=== PATIENT | female | born 1980 | race Two or more races ===

== ENCOUNTER 2022-09-05 18:49 | Inpatient (IN) | payer MEDICARE, OTHER ==
[~2022-09-05] VITALS: Ht 170.2 cm; Wt 130.6 kg
--- NOTE | 2022-09-05 19:23 | NUR ---
iv inserted, bld drawn and ssent to lab
[2022-09-05] MEDS ORDERED: IV NS 0.9% 1,000 ML BAG IV ONE (19:30)
[2022-09-05 19:51] LABS: EOSINOPHILS % (AUTO) 0.2 % (0.0-6.0); HEMATOCRIT 38 % (33-45); HEMOGLOBIN 11.9 g/dL (11.5-14.8); LYMPHOCYTES # (AUTO) 0.3 K/uL (0.8-4.8); LYMPHOCYTES % (AUTO) 1.9 % (20.0-44.0); MEAN CORPUSCULAR HGB CONC 32 g/dl (31.0-36.0); MEAN CORPUSCULAR VOLUME 95 fL (82-100); MONOCYTES # (AUTO) 0.6 K/uL (0.1-1.30); MONOCYTES % (AUTO) 3.6 % (2.0-12.0); NEUTROPHILS # (AUTO) 14.4 K/uL (1.8-8.9); NEUTROPHILS % (AUTO) 94.3 % (43.0-81.0); PLATELET COUNT (AUTO) 136 K/uL (150-450); RED BLOOD CELL COUNT(AUTO) 3.96 MIL/uL (4.0-5.2); WHITE BLOOD COUNT (AUTO) 15.3 K/uL (4.3-11.0)
[2022-09-05 20:20] LABS: CALCIUM, SERUM 8.1 mg/dL (8.5-10.1); CARBON DIOXIDE 22 mmol/L (21-32); CHLORIDE 101 mmol/L (98-107); CREATININE 3.3 mg/dL (0.6-1.3); GLUCOSE 121 mg/dL (74-106); POTASSIUM 3.6 mmol/L (3.5-5.1); SODIUM SERUM 137 mmol/L (136-145); UREA NITROGEN, BLOOD 52 mg/dL (7-18)
[2022-09-05 20:35] LABS: ALANINE AMINOTRANSFERASE 16 U/L (12-78); ALBUMIN 3.4 g/dL (3.4-5.0); ALKALINE PHOSPHATASE 164 U/L (46-116); ASPARTATE AMINOTRANSFERASE 14 U/L (15-37); BILIRUBIN,DIRECT 0.2 mg/dL (0.0-0.2); BILIRUBIN,TOTAL 0.5 mg/dL (0.2-1.0); TOTAL PROTEIN, SERUM 6.6 g/dL (6.4-8.2)
[2022-09-05] MEDS ORDERED: CLINDAMYCIN 600 MG in IV D5W 100 ML IV ONE ×4 (21:00)
[2022-09-05] MEDS ORDERED: PIPERACILLIN /TAZOBACTAM 3.375 G in IV D5W 50 ML IV ONE (21:00)
--- NOTE | 2022-09-05 21:00 | NUR ---
MOVE SHEET SUBMITTED.
[2022-09-05] MEDS ORDERED: PIPERACI/TAZO 3.375GM/D5W 50ML PB IV ONE (21:01)
--- NOTE | 2022-09-05 21:08 | NUR ---
CRITICAL LAB PROCALCITONIN 41.9 DR YOVANA DANIELLE AWARE
[2022-09-05] MEDS ORDERED: ALBUTEROL FS 2.5 MG/0.5 ML VIAL.NEB NEB PRN (21:30)
[2022-09-05] MEDS ORDERED: Z GUARD REMEDY 4 OZ OINT TP PRN (21:30)
[2022-09-05] MEDS ORDERED: ONDANSETRON HCL/PF 4 MG/2 ML VIAL IVP PRN (21:30)
[2022-09-05] MEDS ORDERED: AZITHROMYCIN 500 MG in IV D5W 250 ML IV ONE (21:30)
[2022-09-05 21:57] LABS: BILIRUBIN,URINE NEGATIVE (NEGATIVE); COLOR,URINE YELLOW (YELLOW); LEUKOCYTE ESTERASE ,URINE 1+ (NEGATIVE); NITRITE, URINE POSITIVE (NEGATIVE); PH,URINE 5.5 (5.0-8.0); PROTEIN,URINE 2+ mg/dl (NEGATIVE); UGLUCOSE NEGATIVE (NEGATIVE); UROBILINOGEN,URINE 0.2 EU/dL (0.2)
--- NOTE | 2022-09-05 22:03 | NUR ---
PT CAME IN C/O FEVER OF 103 ON ARRIVAL POSSIBLE SEPSIS AND Hx OF UTI COMING FROM SNF. PT A/O X4 WITH TREACH CONNECTED TO COOL AEROSOL/ G TUBE HAS BEEN REMOVED. PT CONNECTED TO BEDSIDE MONITOR VITALS WNL PLACED IN BED LOCKED IN LOW FOWLERS.
--- NOTE | 2022-09-05 22:10 | NUR ---
DR VERONIKA DANIELLE HOSPITALIST AT PT'S BEDSIDE FOR EVAL
[2022-09-05 22:24] LABS: BACTERIA,URINE 3+ /HPF (None Seen); MUCUS,URINE Few /LPF (None Seen); RBC,URINE 51-80 /HPF (0-2); SQUAMOUS EPITHELIAL CELL,UR 0-2 /HPF (None Seen)
[2022-09-06] VITALS (8 sets, daily range): BP systolic 103–138; BP diastolic 53–94
--- NOTE | 2022-09-06 00:12 | NUR ---
REPORT GIVEN TO MELISSA URENA FOR INPATIENT SERVICES.
[2022-09-06] MEDS ORDERED: CEFEPIME 2 GM in IV D5W 100 ML IV ONE (00:30)
--- NOTE | 2022-09-06 00:59 | NUR ---
PT TRANSFERRING TO 314-1 VIA ACLS PROTOCOL. VSS.
--- NOTE | 2022-09-06 02:00 | NUR ---
ASSISTANT PURCHASING MANAGERQUARRY BOSS NOTE ADMITTED THIS PATIENT FROM ER WITH ER STAFF VIA GURNEY IN DUE TO PNEUMONIA @ 0107. PATIENT IS AWAKE, ALERT AND ORIENTED X 4. WITH TRACH (SPEAKING VALVE) NOT ON VENTILATOR WITH O2 INHALATION @ 5LPM; TOLERATING WELL. ABLE TO MAKE NEEDS KNOWN. HOOKED TO TELE BOX WHICH READS SR-68 BPM. WITH IV ACCESS ON RIGHT FA 22G AND RIGHT FOOT 22G; BOTH ARE PATENT, INTACT AND SALINE LOCKED. DENIES ANY PAIN OR DISCOMFORT. SKIN AND BODY ASSESSMENT DONE: NOTED WITH GT SITE REDNESS, RIGHT BREAST UNDERFOLD REDNESS AND RIGHT INGUINAL REDNESS. PICTURES TAKEN AND PLACED TO CHART. INVENTORY OF PERSONAL BELONGINGS DONE. ORIENTED TO STAFF, ROOM AND UNIT. SAFETY AND ASPIRATION PRECAUTIONS IMPLEMENTED: CALL LIGHT AND TABLE WITHIN REACH, HOB ELEVATED, SIDE RAILS UP X 3, BED IN LOWEST LOCKED POSITION. WILL CONTINUE TO MONITOR THROUGHOUT SHIFT.
[2022-09-06] MEDS ORDERED: CEFEPIME 1 GM VIAL ONE (02:30)
[2022-09-06] MEDS ORDERED: IPRATROPIUM/ALBUTEROL INHALER ONE (02:30)
[2022-09-06] MEDS: IPRATROPIUM/ALBUTEROL INHALER IH SCH ×2 (05:52→06:00)
[2022-09-06 06:16] LABS: BASOPHILS % (AUTO) 0.1 % (0.0-2.0); HEMATOCRIT 36 % (33-45); HEMOGLOBIN 11.7 g/dL (11.5-14.8); LYMPHOCYTES # (AUTO) 0.4 K/uL (0.8-4.8); LYMPHOCYTES % (AUTO) 2.3 % (20.0-44.0); MEAN CORPUSCULAR HGB CONC 32 g/dl (31.0-36.0); MEAN CORPUSCULAR VOLUME 94 fL (82-100); NEUTROPHILS # (AUTO) 14.6 K/uL (1.8-8.9); NEUTROPHILS % (AUTO) 91.6 % (43.0-81.0); PLATELET COUNT (AUTO) 128 K/uL (150-450)
[2022-09-06 06:41] LABS: ALBUMIN 3.1 g/dL (3.4-5.0); BILIRUBIN,TOTAL 0.8 mg/dL (0.2-1.0); CALCIUM, SERUM 8.2 mg/dL (8.5-10.1); CREATININE 3.3 mg/dL (0.6-1.3); MAGNESIUM 1.7 mg/dL (1.8-2.4); PHOSPHORUS 3.9 mg/dL (2.5-4.9); POTASSIUM 3.7 mmol/L (3.5-5.1); TOTAL PROTEIN, SERUM 6.4 g/dL (6.4-8.2)
--- NOTE | 2022-09-06 07:20 | NUR ---
SUBMARINE OPERATOR CLOSING NOTE PATIENT IN BED; AWAKE, A/O X 4. WITH TRACH (SPEAKING VALVE) NOT ON VENTILATOR; ON COOL AIR SOFT 10 LPM @ 50%. IN NO ACUTE DISTRESS. ON TELEMONITORING WHICH READS SR-95 BPM. NO C/O ANY PAIN OR DISCOMFORT. KEPT COMFORTABLE IN BED. SAFETY AND ASPIRATION PRECAUTIONS MAINTAINED: CALL LIGHT AND TABLE WITHIN REACH, HOB ELEVATED, SIDE RAILS UP X 3, BED IN LOWEST LOCKED POSITION. ENDORSED TO MORNING SHIFT FOR CONTINUITY OF CARE.
--- NOTE | 2022-09-06 07:25 | NUR ---
GYRO MECHANIC OPENING NOTE RECEIVED PATIENT AWAKE IN BED, A/O X 4. WITH TRACHEOSTOMY (SPEAKING VALVE), ON COOL AIR SOFT 10 LPM 50%, BREATHING EVEN AND UNLABORED. NO SIGNS OF DISTRESS NOTED; NO PAIN NOTED AT THIS TIME. WITH IV ACCESS AT RFA G#22 SL AND RIGHT FOOT #22G SL. WITH EXTERNAL CARBURETOR MECHANIC WITH READING OF SINUS RHYTHM HR OF 95 BPM. WITH GT SITE, WITH DRESSING, DRY AND INTACT. SAFETY MEASURES IMPLEMENTED, BED LOCKED IN LOWEST POSITION, SIDE RAILS UP X 2, CALL LIGHT AND TABLE WITHIN REACH; WILL CONTINUE TO MONITOR PATIENT THROUGHOUT SHIFT.
[2022-09-06] MEDS: IPRATROPIUM NEB FS 0.5 MG/2.5 ML AMPUL.NEB NEB SCH ×4 (07:35→19:38)
[2022-09-06] MEDS: ALBUTEROL FS 2.5 MG/0.5 ML VIAL.NEB NEB SCH ×4 (07:35→19:38)
[2022-09-06] MEDS: HEPARIN SODIUM, PORCINE 5000 UNITS/1 ML VIAL SQ SCH ×2 (09:30→22:08)
[2022-09-06] MEDS: LINEZOLID RTU BAG 600 MG in PREMIX 1 EA IV SCH ×2 (10:56→20:15)
[2022-09-06] MEDS: ACETAMINOPHEN 325 MG TABLET PO PRN (15:46)
--- NOTE | 2022-09-06 18:57 | NUR ---
TEAROOM HOST CLOSING NOTE PATIENT AWAKE IN BED, A/O X 4. WITH T- PIECE PORTEX, ON ROOM AIR AT THE MOMENT PREVIOUSLY ON COOL AIR SOFT 10 LPM 50%, BREATHING EVEN AND UNLABORED. NO SIGNS OF DISTRESS NOTED; NO PAIN NOTED AT THIS TIME. WITH IV ACCESS AT RIGHT FOOT G#22 SL, INTACT, PATENT AND FLUSHING WELL. SKIN CARE IMPLEMENTED. REDNESS AROUND G-TUBE SITE, DRESSING CHANGED, DRY AND INTACT. WITH EXTERNAL NANNY/HOUSEHOLD MANAGER WITH READING OF SINUS RHYTHM WITH HR OF 107 BPM. NO CARDIAC DISTRESS NOTED. SAFETY MEASURES IMPLEMENTED, BED LOCKED IN LOWEST POSITION, SIDE RAILS UP X 2, CALL LIGHT AND TABLE WITHIN REACH; WILL ENDORSE TO PROJECT DEVELOPER NURSE.
--- NOTE | 2022-09-06 20:00 | NUR ---
RECEIVED PATIENT IN BED, ALERT/ORIENTED X3, ROOM AIR, ABDOMINAL DISCOMFORT, ASSISTED TO TOILET, PREVIOUS PEG SITE DRAINING BROWNISH DISCHARGE, DRESSING CHANGED. NOTED DESHAWN AV FISTULA, PATIENT ON DIALYSIS. PATIENT HAS CHILD LIKE DEMEANOR, KEPT SAFE, EDUCATED PATIENT TO USE CALL LIGHT WHEN GETTING OUT OF BED. WILL CONTINUE TO MONITOR.
[2022-09-06] MEDS: MORPHINE SULFATE INJ 2 MG/ML DISP.SYRIN IV PRN (20:15)
--- NOTE | 2022-09-06 21:50 | NUR ---
NOTIFIED DR. BANDA REGARDING PEG TUBE SITE REDNESS AND DRAINAGE. NO GI CONSULT AT NIGHT, WILL REPORT DURING THE DAY.
--- NOTE | 2022-09-06 23:06 | NUR ---
PERIPHERAL IV LINE ON RIGHT FOOT INFILTRATED, ATTEMPTED INSERTION BY TWO NURSES HAS FAILED. ZYVOX IS [facility] INFUSING WHEN THE IV LINE IS DISLODGED AND INFILTRATED. NOTIFIED RN CARBURETOR EXPERT FOR MIDLINE.
[2022-09-07] VITALS: BP 129/61
[2022-09-07] MEDS: ALBUTEROL FS 2.5 MG/0.5 ML VIAL.NEB NEB SCH ×4 (01:52→20:41)
[2022-09-07] MEDS: IPRATROPIUM NEB FS 0.5 MG/2.5 ML AMPUL.NEB NEB SCH ×4 (01:52→20:42)
[2022-09-07 04:00] VITALS: BP 120/69
--- NOTE | 2022-09-07 05:19 | NUR ---
NO IV LINE, MAXIPIME NOT GIVEN AT THIS TIME
[2022-09-07 06:45] LABS: BASOPHILS % (AUTO) 0.1 % (0.0-2.0); EOSINOPHILS % (AUTO) 0.6 % (0.0-6.0); HEMATOCRIT 35 % (33-45); HEMOGLOBIN 11.3 g/dL (11.5-14.8); LYMPHOCYTES # (AUTO) 0.6 K/uL (0.8-4.8); LYMPHOCYTES % (AUTO) 5.6 % (20.0-44.0); MEAN CORPUSCULAR HGB CONC 33 g/dl (31.0-36.0); MEAN CORPUSCULAR VOLUME 94 fL (82-100); MONOCYTES # (AUTO) 0.7 K/uL (0.1-1.30); MONOCYTES % (AUTO) 7.5 % (2.0-12.0); NEUTROPHILS # (AUTO) 8.6 K/uL (1.8-8.9); NEUTROPHILS % (AUTO) 86.2 % (43.0-81.0); PLATELET COUNT (AUTO) 106 K/uL (150-450); RED BLOOD CELL COUNT(AUTO) 3.68 MIL/uL (4.0-5.2)
--- NOTE | 2022-09-07 06:55 | NUR ---
ALERT/ORIENTED X3, TRACH WITH SPEAKING VALVE, ON COOL AIR SOFT, 5LPM, TOLERATING ROOM AIR, SPO2 95-98%. PREVIOUS PEG TUBE SITE DRAINING BROWNISH OUTPUT, PERIWOUND SITE IS RED WITH SKIN IRRITATION, DRESSING CHANGED, COMPLAINING OF PAIN, GIVEN MORPHINE, NOTIFIED HOSPITALIST, DR. BANDA FOR GI CONSULT. RIGHT FOOT IV LINE INFILTRATED, NO IV LINE FOR NOW, ZYVOX AND MAXIPIME, MIDLINE PLACEMENT NEEDED. PATIENT ON HD 3X PER WEEK, NO HD SINCE ADMISSION. BLOOD CULTURE PENDING, VS STABLE, AFEBRILE, SR 76 ON THE TELE.
[2022-09-07 07:08] LABS: ALBUMIN 2.8 g/dL (3.4-5.0); BILIRUBIN,TOTAL 0.8 mg/dL (0.2-1.0); CALCIUM, SERUM 8.7 mg/dL (8.5-10.1); CREATININE 2.8 mg/dL (0.6-1.3); MAGNESIUM 1.9 mg/dL (1.8-2.4); PHOSPHORUS 3.3 mg/dL (2.5-4.9); POTASSIUM 3.5 mmol/L (3.5-5.1); TOTAL PROTEIN, SERUM 6.2 g/dL (6.4-8.2)
--- NOTE | 2022-09-07 07:53 | NUR ---
RN OPENING NOTE RECEIVED PATIENT IN BED, AO X 3, ABLE TO RESPONDS ALL PHYSICAL STIMULI. PATIENT HAS TRACHEOSTOMY WITH SPEAKING VALVE, RESPIRATORY EVEN AND UNLABORED IN ROOM AIR, IN NO ACUTE RESPIRATORY DISTRESS OBSERVED. SKIN IS WARM TO TOUCH, KEEP CLEAN/DRY. KEPT ELEVATED HOB FOR ASPIRATION PRECAUTION AND ENSURE AIRWAY, ALSO LOWEST BED POSITIONED. BED ALARM IS ON AT ALL TIMES FOR SAFETY. CALL LIGHT WITHIN REACH, WILL CONTINUE TO MONITOR.
[2022-09-07] MEDS: HEPARIN SODIUM, PORCINE 5000 UNITS/1 ML VIAL SQ SCH ×2 (08:18→20:18)
[2022-09-07 08:47] VITALS: BP 117/83
[2022-09-07] MEDS ORDERED: KETO15CR2 TP (10:39)
[2022-09-07] MEDS ORDERED: BENZ0.5T43 PO (10:39)
[2022-09-07] MEDS ORDERED: TRAZ-182 PO (10:39)
[2022-09-07] MEDS ORDERED: LORA10TA68 PO (10:39)
[2022-09-07] MEDS ORDERED: LORA-259 PO (10:39)
[2022-09-07] MEDS ORDERED: FOLI0.8T2 PO (10:39)
[2022-09-07] MEDS ORDERED: POLY17PO4 PO (10:39)
[2022-09-07] MEDS ORDERED: CALC500T13 PO (10:39)
[2022-09-07] MEDS ORDERED: OXYC5TAB3 PO (10:39)
[2022-09-07] MEDS ORDERED: GABA-532 PO (10:39)
[2022-09-07] MEDS ORDERED: BUPR-96 PO (10:39)
[2022-09-07] MEDS ORDERED: IPRA3AMP23 IH (10:39)
[2022-09-07] MEDS ORDERED: HEXY1LOZ4 MM (10:39)
[2022-09-07] MEDS ORDERED: LANS15CA13 PO (10:39)
[2022-09-07] MEDS ORDERED: ARIP10TA9 PO (10:39)
[2022-09-07] MEDS ORDERED: TOPI50TA PO (10:39)
[2022-09-07] MEDS ORDERED: SENN1TAB77 PO (10:39)
[2022-09-07] MEDS ORDERED: FLUT16SP16 (10:39)
[2022-09-07] MEDS ORDERED: KETO120S5 TP (10:39)
[2022-09-07] MEDS ORDERED: POLY15DR40 EACHEYE (10:39)
[2022-09-07] MEDS ORDERED: ACET-868 PO (10:39)
[2022-09-07] MEDS ORDERED: ATOR10TA PO (10:39)
[2022-09-07] MEDS ORDERED: SERT50TA PO (10:39)
[2022-09-07] MEDS ORDERED: APIX2.5T PO (10:39)
[2022-09-07] MEDS ORDERED: PROP10TA10 PO (10:39)
[2022-09-07] MEDS ORDERED: FERR325T24 PO (10:39)
[2022-09-07] MEDS ORDERED: HYDR-500 PO (10:39)
[2022-09-07] MEDS ORDERED: GUAI100S11 PO (10:39)
[2022-09-07] MEDS ORDERED: SUCR1ORA15 PO (10:39)
[2022-09-07] MEDS ORDERED: AMIN30LI2 PO (10:39)
[2022-09-07] MEDS ORDERED: HALO5TAB8 PO ×2 (10:39)
[2022-09-07] MEDS ORDERED: MIDO5TAB4 PO (10:39)
[2022-09-07] MEDS ORDERED: METO-295 PO (10:39)
[2022-09-07] MEDS ORDERED: MINO2.5T PO (10:39)
[2022-09-07] MEDS ORDERED: BENZ1TAB7 PO (10:39)
[2022-09-07] MEDS ORDERED: HYDR200T81 PO (10:39)
[2022-09-07] MEDS ORDERED: MINO60SO TP (10:39)
[2022-09-07] MEDS ORDERED: CHLO473M5 MM (10:39)
[2022-09-07] MEDS ORDERED: LACT1CAP71 PO (10:39)
[2022-09-07] MEDS ORDERED: LEVO100T9 PO (10:39)
[2022-09-07] MEDS ORDERED: MAGN400O6 PO (10:39)
[2022-09-07] MEDS ORDERED: IPRA0.2S9 IH (10:39)
[2022-09-07] MEDS ORDERED: LIDO30AD10 TP (10:39)
--- NOTE | 2022-09-07 11:16 | NUR ---
PATIENT JUST OBTAINED MIDLINE ON RIGHT UPPER ARM AND STARTING ZYVOX 600MG IV FROM 2100 09/06. MISSED COUPLE OF ABX IV; MAXIPIME 2GM AT 0600 AND ZYVOX 600MG IV AT 0900 AM. INFORMED PHARMACY REGARDING ABOVE.
[2022-09-07] MEDS: CEFEPIME 2 GM in IV D5W 100 ML IV SCH (12:11)
[2022-09-07] MEDS: MORPHINE SULFATE INJ 2 MG/ML DISP.SYRIN IV PRN ×2 (13:11→17:26)
[2022-09-07] MEDS: LINEZOLID RTU BAG 600 MG in PREMIX 1 EA IV SCH ×2 (14:37→20:17)
[2022-09-07 16:10] VITALS: BP 147/85
--- NOTE | 2022-09-07 18:19 | NUR ---
RN CLOSING NOTE PATIENT RESTING IN BED. IN NO ACUTE DISTRESS OBSERVED. RESPIRATORY EVEN AND UNLABORED IN ROM AIR. SKIN IS WARM TO TOUCH KEEP CLEAN/DRY. CHANGED GI DRESSING X 5. KEPT ELEVATED HOB FOR ENSURE AIRWAY/ASPIRATION PRECAUTION, AND LOWEST BED POSITION. BED ALARM IS ON ALL TIMES FOR SAFETY. PATIENT NOTED POSITIVE MRSA, PLACED NEW ORDER BACTROBAN APPLY BILATERAL NARES BID X 7DAYS. CALL LIGHT WITHIN REACH, WILL ENDORSE BUSINESS SUPPORT PROFESSIONAL.
--- NOTE | 2022-09-07 19:24 | NUR ---
RN OPENING NOTE RECEIVED PATIENT IN BED AWAKED,AO X 3, ABLE TO MAKE NEEDS KNOWN,TRACHEOSTOMY PT WITH SPEAKING VALVE KAROLINA WELL SAT 98%,NO SOB/DISTRESS NOTED,NO COMPLAIN OF PAIN/DISCOMFORT AT THIS TIME,SAFETY MEASURE IN PLACE,CALL LIGHT WITHIN REACH, WILL CONTINUE TO MONITOR.
[2022-09-07 20:00] VITALS: BP 144/86
[2022-09-07] MEDS: MUPIROCIN OINT 2% 22 GM TUBE NS SCH (20:17)
--- NOTE | 2022-09-07 20:42 | NUR ---
RT NOTE PATIENT RECEIVED WITH TRACH AND WITH PMV ON ROOM AIR. PATIENT IS AWAKE AND RESPONSIVE. PATIENT IS CURRENTLY REFUSING TO USE COOL AEROROL. NO SIGNS OF RESPIRATORY DISTRESS AT THIS TIME. SPO2 CURRENTLY 95-97%. WILL CONTINUE TO MONITOR PATIENT.
[2022-09-08] VITALS: BP 121/74
[2022-09-08] MEDS: MORPHINE SULFATE INJ 2 MG/ML DISP.SYRIN IV PRN ×4 (00:46→19:43)
--- NOTE | 2022-09-08 00:52 | NUR ---
RN NOTE; PATIENT COMPLAINED OF ABDOMINAL PAIN 12/28.PRN MORPHINE 2MG IVP WAS GIVEN,NO A/R NOTED.
[2022-09-08] MEDS: IPRATROPIUM NEB FS 0.5 MG/2.5 ML AMPUL.NEB NEB SCH ×4 (02:32→20:34)
[2022-09-08] MEDS: ALBUTEROL FS 2.5 MG/0.5 ML VIAL.NEB NEB SCH ×4 (02:32→20:34)
[2022-09-08 04:00] VITALS: BP 124/84
[2022-09-08] MEDS: CEFEPIME 2 GM in IV D5W 100 ML IV SCH (05:10)
--- NOTE | 2022-09-08 06:15 | NUR ---
RN CLOSING NOTE; PATIENT IN BED AWAKED,AOX 3, ABLE TO MAKE NEEDS KNOWN,TRACH PT WITH SPEAKING VALVE ON KAROLINA WELL SAT 97%,NO SOB/DISTRESS NOTED,PT COMPLAINED OF ABD PAIN 9/10 PRN MORPHINE 2MG WAS GIVEN EFFECTIVE,DUE MEDS GIVEN ORDERED,ALL NEEDS ATTENDED,SAFETY MEASURE IN PLACE,CALL LIGHT WITHIN REACH, WILL ENDORSED TO NEXT SHIFT.
[2022-09-08] MEDS: ACETAMINOPHEN 325 MG TABLET PO PRN (06:30)
[2022-09-08 07:21] LABS: BASOPHILS % (AUTO) 0.6 % (0.0-2.0); HEMATOCRIT 34 % (33-45); HEMOGLOBIN 11.2 g/dL (11.5-14.8); LYMPHOCYTES # (AUTO) 0.8 K/uL (0.8-4.8); MEAN CORPUSCULAR HGB CONC 33 g/dl (31.0-36.0); MEAN CORPUSCULAR VOLUME 95 fL (82-100); MONOCYTES # (AUTO) 0.7 K/uL (0.1-1.30); MONOCYTES % (AUTO) 11.3 % (2.0-12.0); NEUTROPHILS # (AUTO) 4.9 K/uL (1.8-8.9); NEUTROPHILS % (AUTO) 74.1 % (43.0-81.0); PLATELET COUNT (AUTO) 114 K/uL (150-450); RED BLOOD CELL COUNT(AUTO) 3.62 MIL/uL (4.0-5.2); WHITE BLOOD COUNT (AUTO) 6.6 K/uL (4.3-11.0)
[2022-09-08 07:25] LABS: ALBUMIN 2.8 g/dL (3.4-5.0); BILIRUBIN,TOTAL 0.6 mg/dL (0.2-1.0); CALCIUM, SERUM 8.8 mg/dL (8.5-10.1); CREATININE 2.6 mg/dL (0.6-1.3); MAGNESIUM 2.1 mg/dL (1.8-2.4); PHOSPHORUS 3.5 mg/dL (2.5-4.9); POTASSIUM 3.4 mmol/L (3.5-5.1); TOTAL PROTEIN, SERUM 6.4 g/dL (6.4-8.2)
--- NOTE | 2022-09-08 07:55 | NUR ---
SECTION GANG WORKER OPENING NOTE Patient in bed, awake. A/O x 2-3, able to make needs known. On room air, trach with passy nicolette valve noted. No SOB or s/s of distress noted. IV access on EMMA midline SL, intact and patent. LFA AV fistula noted. On external asset protection representative showing SB , HR 55. Abdominal dressing c/d/i. Safety precautions in place: bed in low, locked position; siderails up x 2; call light within reach. Will continue to monitor.
[2022-09-08 08:59] VITALS: BP 123/79
[2022-09-08] MEDS: LINEZOLID RTU BAG 600 MG in PREMIX 1 EA IV SCH ×2 (09:05→20:39)
[2022-09-08] MEDS: HEPARIN SODIUM, PORCINE 5000 UNITS/1 ML VIAL SQ SCH ×2 (09:05→20:40)
[2022-09-08] MEDS: MUPIROCIN OINT 2% 22 GM TUBE NS SCH ×2 (09:06→20:41)
--- NOTE | 2022-09-08 10:09 | NUR ---
WOUND CARE CONSULT:PT PRESENTS WITH RASH TO SKIN FOLDS AND PREVIOUS G TUBE SITE WHICH HAS NOT HEALED WITH LARGE AMOUNT OF GREEN DRAINAGE, PRESENT ON ADMISSION. RECOMMENDATIONS MADE FOR SKIN PROTECTION. DISCUSSED WITH NURSING STAFF. DR FENTON CALLED FOR SURGICAL CONSULT. OSTOMY POUCH WAS PLACED ON ABDOMEN FOR SKIN PROTECTION. DEFER TO PMD FOR POSSIBLE GI CONSULT. PT IS AMBULATORY AND CONTINENT. CAPPED TRACH NOTED. MD IN AGREEMENT WITH PLAN OF CARE. Addendum: 09/08/22 at 1012 by SUJEY BRYAN WNDNU Amended: Links added.
[2022-09-08 11:07] VITALS: BP 124/80
--- NOTE | 2022-09-08 13:20 | NUR ---
RN NOTE Patient's potassium is 3.4, Dr. Sage Locke notified but did not want to replace because of BUN is 37, creatinine is 2.6.
[2022-09-08 16:24] VITALS: BP 131/84
[2022-09-08] MEDS ORDERED: CLOTRIMAZOLE 1% 15 GM TUBE TP SCH (17:00)
--- NOTE | 2022-09-08 17:00 | NUR ---
RN NOTE Bladder scan done with 300 ml residual, Dr. Mosher notified and ordered to do bladder scan again at 1999. Will endorse to professor of literacy nurse.
--- NOTE | 2022-09-08 19:23 | NUR ---
SUPERVISOR CORE SHOP CLOSING NOTE Patient in bed, resting. A/O x 3, able to make needs known. Stable on room air, trach with passy nicolette valve noted. No SOB or s/s of distress noted. IV access on EMMA midline SL, intact and patent. LFA AV fistula noted. On external solar fabrication technician showing SR , HR 63. GT site left open, per Dr. Aguayo, with redness around, Lotrimin cream applied. Procedure consent obtained for surgery on GT site. Safety precautions in place: bed in low, locked position; siderails up x 2; call light within reach. Will endorse to car shifter nurse for VINAYAK.
[2022-09-08 20:00] VITALS: BP 126/86
--- NOTE | 2022-09-08 21:51 | NUR ---
BLADDER SCANNED AT 2130 SHOWING 354 ML DONE SHE AFTER SHE VOIDED TEXTED MD CHOU WHO PLACED THE ORDER WAITING FOR RETURN ORDERS PATIENT NOT COMPLAINING OF DISCOMFORT
--- NOTE | 2022-09-08 22:51 | NUR ---
called MD CHOU made aware bladder scan the patient showing 354 ml orders received to straight cath now x1 and do bladder scan q day @ 10AM
[2022-09-09] MEDS: ALBUTEROL FS 2.5 MG/0.5 ML VIAL.NEB NEB SCH ×5 (02:20→20:50)
[2022-09-09] MEDS: IPRATROPIUM NEB FS 0.5 MG/2.5 ML AMPUL.NEB NEB SCH ×5 (02:20→20:50)
--- NOTE | 2022-09-09 04:25 | NUR ---
CLOSING NOTES: ALERT AND ORIENTATED X3 CAPPED TRACH SATS 93 -5% AMBULATES TO THE BATHROOM STEADY GAIT 21:30 BLADDER SCANNED 354 ML SEEN...CALL PLACED TO MD CHOU ORDERS GIVEN PLACED PT ON I/O AND EXPLAINED THIS TO HER I STRAIT CATHED HER 1X ORDERED BY THE MD 300ML OBTAINED LAST VOIDING 04:30 250 [address]ARK [employer] PT IS ON ZYVOX AND MAXIPIME ATBS NPO SINCE MIDNIGHT SCHEDULE FOR CLOSURE OF PEG TUBE SITE WITH DEBRIDMENT SHE IS AWARE AROUND PEG SITE RED AND SORE APPEARING CONT. OOZING KEPT THE AREA CLEAN AND DRY
[2022-09-09] MEDS: CEFEPIME 2 GM in IV D5W 100 ML IV SCH (05:41)
[2022-09-09] MEDS: MORPHINE SULFATE INJ 2 MG/ML DISP.SYRIN IV PRN ×2 (05:50→13:44)
--- NOTE | 2022-09-09 07:00 | NUR ---
COTTRELL BLOWER OPENING NOTE PATIENT IN BED AWAKE, ALERT AND ORIENTED X 2-3 AND ABLE TO MAKE NEEDS KNOWWN, NO SOB OR CARDIAC DISTRESS NOTED. IV ACCESS ON EMMA ML PATENT,INTACT AND SALINE LOCKED. NOTED WITH LFA AV FISTULA. ON JUDICIAL ASSISTANT WITH CURRENT READING OF SINUS @60BPM.NOTED WITH REDDENED ABDOMEN WITH DISCHARGE. SAFETY MEASURES MAINTAINED: BED LOCKED AND IN LOWEST POSITION, SIDERAILS UP X 2. CALL LIGHT IN EASY REACH AND WILL MONITOR PT ACCORDINGLY.
[2022-09-09 07:30] VITALS: BP 147/88
[2022-09-09 08:03] LABS: CALCIUM, SERUM 9.3 mg/dL (8.5-10.1); CREATININE 2.2 mg/dL (0.6-1.3); POTASSIUM 3.9 mmol/L (3.5-5.1)
[2022-09-09] MEDS: HEPARIN SODIUM, PORCINE 5000 UNITS/1 ML VIAL SQ SCH ×2 (09:00→21:31)
[2022-09-09] MEDS: LINEZOLID RTU BAG 600 MG in PREMIX 1 EA IV SCH ×2 (09:41→21:15)
[2022-09-09] MEDS: MUPIROCIN OINT 2% 22 GM TUBE NS SCH ×2 (09:42→21:33)
[2022-09-09] MEDS: CLOTRIMAZOLE/BETAMETASONE DIPROPIONATE 15 GM TUBE TP SCH ×2 (09:43→17:00)
[2022-09-09 11:30] VITALS: BP 151/90
--- NOTE | 2022-09-09 12:30 | NUR ---
RN NOTES: PVR DONE 650ML URINE RETENTION NOTED AND INFORMED DR JIANG, ORDERED TO INSERT GEORGE CATHETER. ORDERS NOTED AND CARRIED OUT.
--- NOTE | 2022-09-09 13:44 | NUR ---
PAIN MANAGMENT MORPHINE 2MG IVP GIVEN,PAIN SCALE OF 8/10 ON HER ABDOMEN/STOMACH. NOTED WITH EPISODES OF CRYING.
--- NOTE | 2022-09-09 13:44 | NUR ---
PAIN MANAGEMENT: MORPHINE 2MG/ML PAIN SCALE 8/10 ON HER ABDOMEN/STOMACH. NOTED WITH EPISODES OF CRYING. Addendum: 09/09/22 at 1351 by MATILDE VAUGHN RN ERROR INCOMPLETE NOTES.
[2022-09-09 16:00] VITALS: BP 157/95
[2022-09-09] MEDS ORDERED: VANCOMYCIN 1 GM VIAL ONE (16:24)
[2022-09-09] MEDS ORDERED: BUPIVACAINE MPF 0.5% W/EPI INJ 30 ML VIAL ONE (16:24)
[2022-09-09] MEDS ORDERED: LIDOCAINE 1% INJ 50 ML MDV IJ ONE (16:24)
[2022-09-09] MEDS ORDERED: BACITRACIN ZINC OINT PACKET 1 EA PACKET TP ONE (16:24)
--- NOTE | 2022-09-09 18:15 | NUR ---
RN NOTES: PATIENT P/U BY SURGERY TEAM VIA BED. PT ALERT AND ORIENTED X 3 AND ABLE TO MAKE NEEDS KNOWN, PARENTS AT BED SIDE. PT FOR SURGERY UNDER DR GARDNER. IV ACCESS ON EMMA ML PATENT INTACT AND SL. GEORGE CATHETER IN PLACE, DRAINING CLEAR YELLOW COLORED URINE BY GRAVITY. NPO SINCE MN. ENDORSED TO ROMEL CROOK FOR SURGERY. PT LEFT THE UNIT STABLE.
[2022-09-09] MEDS ORDERED: FENTANYL PF 250MCG/5ML AMPUL ONE (19:16)
[2022-09-09] MEDS ORDERED: HYDROMORPHONE INJ 2 MG/ML DISP.SYRIN ONE (19:16)
[2022-09-09] MEDS ORDERED: FAMOTIDINE/PF INJ 20 MG/2 ML VIAL IV ONE (19:16)
[2022-09-09] MEDS ORDERED: ROCURONIUM BROMIDE 50 MG/5 ML ONE (19:17)
--- NOTE | 2022-09-09 19:35 | NUR ---
GENERAL FARMWORKER CLOSING NOTES: PATIENT CURRENTLY ON SURGERY. ENDORSED TO CEO ZIFF DAVIS FOR VINAYAK.
--- NOTE | 2022-09-09 19:53 | NUR ---
patient not in room In surgery at this time
[2022-09-09] MEDS ORDERED: GLYCOPYRROLATE 0.2 MG/ML VIAL ONE (20:06)
--- NOTE | 2022-09-09 20:51 | NUR ---
RT NOTE PATIENT CURRENTLY NOT IN ROOM. HHN TX NOT GIVEN
[2022-09-09 21:00] VITALS: BP 148/93
[2022-09-09] MEDS ORDERED: IV LR 1000 ML 1,000 ML IV PRN (21:00)
--- NOTE | 2022-09-09 21:00 | NUR ---
in room from surgery via bed alert and orientated X3 father and mother in to see their dtr abd dressing CDI surronding the dressed area reddened area right arm midline IV started LR @ 100 ml hr mane to OSD bag clear yellow drank apple juice w/o nausea VS 148/93 58 19 95% sats mist cool air to trach by the resp therapist patient appears comfortable refusing the SCDs when placed on her legs she is on Heparing SQ call light within her reach her phone is near bed alarm is on
[2022-09-10] VITALS: BP 157/90
[2022-09-10] MEDS: MORPHINE SULFATE INJ 2 MG/ML DISP.SYRIN IV PRN ×2 (02:08→09:34)
[2022-09-10] MEDS: IPRATROPIUM NEB FS 0.5 MG/2.5 ML AMPUL.NEB NEB SCH ×4 (02:22→15:51)
[2022-09-10] MEDS: ALBUTEROL FS 2.5 MG/0.5 ML VIAL.NEB NEB SCH ×4 (02:22→15:51)
[2022-09-10 04:00] VITALS: BP 157/91
[2022-09-10] MEDS: CEFEPIME 2 GM in IV D5W 100 ML IV SCH (05:37)
[2022-09-10 05:42] LABS: BASOPHILS # (AUTO) 0.1 K/uL (0.0-0.2); BASOPHILS % (AUTO) 0.6 % (0.0-2.0); EOSINOPHILS % (AUTO) 0.7 % (0.0-6.0); HEMATOCRIT 36 % (33-45); HEMOGLOBIN 11.7 g/dL (11.5-14.8); LYMPHOCYTES # (AUTO) 1.1 K/uL (0.8-4.8); LYMPHOCYTES % (AUTO) 10.3 % (20.0-44.0); MEAN CORPUSCULAR HGB CONC 33 g/dl (31.0-36.0); MEAN CORPUSCULAR VOLUME 93 fL (82-100); MONOCYTES # (AUTO) 0.9 K/uL (0.1-1.30); MONOCYTES % (AUTO) 8.8 % (2.0-12.0); NEUTROPHILS # (AUTO) 8.2 K/uL (1.8-8.9); NEUTROPHILS % (AUTO) 79.6 % (43.0-81.0); PLATELET COUNT (AUTO) 160 K/uL (150-450); RED BLOOD CELL COUNT(AUTO) 3.86 MIL/uL (4.0-5.2); WHITE BLOOD COUNT (AUTO) 10.3 K/uL (4.3-11.0)
[2022-09-10 06:01] LABS: CALCIUM, SERUM 9.2 mg/dL (8.5-10.1); CREATININE 2.1 mg/dL (0.6-1.3); MAGNESIUM 2.3 mg/dL (1.8-2.4); PHOSPHORUS 4.8 mg/dL (2.5-4.9); POTASSIUM 4.1 mmol/L (3.5-5.1)
--- NOTE | 2022-09-10 06:24 | NUR ---
closing notes: alert and orientated X3 slept off and on thru the night mane drainage clear yellow ABD dressing CDI Room air Resp tx thru the night occ dry cough medicated 1 X with Morphine 2 mg and effective for ABD disomfort
--- NOTE | 2022-09-10 07:40 | NUR ---
RN OPENING NOTE RECEIVED PATIENT AWAKE IN BED, A/O X 3. PATIENT WITH TRACH, ON ROOM AIR, BREATHING EVEN AND UNLABORED. NO SIGNS OF DISTRESS NOTED. S/S NO PAIN NOTED AT THIS TIME. IV ACCESS AT EMMA MIDLINE, INTACT PATENT AND FLUSHING WELL. WITH EXTERNAL VEST BACKER WITH READING OF SB HR OF 58. FALL AND SAFETY MEASURES IN PLACED, BED LOCKED IN LOWEST POSITION, SIDE RAILS UP X 2, CALL LIGHT AND TABLE WITHIN REACH; WILL CONTINUE TO MONITOR PATIENT THROUGHOUT SHIFT. Addendum: 09/10/22 at 0819 by Devorah Friend RN PATIENT WITH GEORGE CATHETER, IN PLACE DRAINING WELL, YELLOW URINE.
[2022-09-10 08:00] VITALS: BP 155/97
[2022-09-10] MEDS: HEPARIN SODIUM, PORCINE 5000 UNITS/1 ML VIAL SQ SCH (09:31)
[2022-09-10] MEDS: MUPIROCIN OINT 2% 22 GM TUBE NS SCH (09:32)
[2022-09-10] MEDS: LINEZOLID RTU BAG 600 MG in PREMIX 1 EA IV SCH (09:32)
[2022-09-10] MEDS: CLOTRIMAZOLE/BETAMETASONE DIPROPIONATE 15 GM TUBE TP SCH ×2 (09:32→16:30)
[2022-09-10] MEDS ORDERED: NITROFURANTOIN/MONOHYDRATE MACROCRYSTALS 100 MG CAPSULE PO SCH (11:30)
[2022-09-10] MEDS ORDERED: LINE600T13 PO (14:30)
[2022-09-10] MEDS ORDERED: NITR100C15 PO (14:30)
[2022-09-10] MEDS ORDERED: CLOT15CR5 TP (14:38)
[2022-09-10 16:00] VITALS: BP 166/88
[2022-09-10] MEDS ORDERED: LORAZEPAM 1 MG TABLET PO ONE (17:25)
--- NOTE | 2022-09-10 18:52 | NUR ---
RN CLOSING NOTE PATIENT AWAKE IN BED, A/O X 3. PATIENT WITH TRACH, ON ROOM AIR, BREATHING EVEN AND UNLABORED. NO SIGNS OF DISTRESS NOTED. S/S NO PAIN NOTED AT THIS TIME. PATIENT WITH GEORGE CATHETER, IN PLACE DRAINING WELL, YELLOW URINE, OUTPUT 900ML .NO IV ACCESS. EXTERNAL BUSINESS INSTRUCTOR WAS REMOVED AND TURNED TO TELE DESK. PATIENT IS WAITING FOR TRANSPORTATION. ALL NEEDS ATTENDED AND ANTICIPATED. FALL AND SAFETY MEASURES IN PLACED, BED LOCKED IN LOWEST POSITION, SIDE RAILS UP X 2, CALL LIGHT AND TABLE WITHIN REACH. WILL ENDORSE TO VISUAL MERCHANDISING ASSOCIATE NURSE.
--- NOTE | 2022-09-10 19:40 | NUR ---
METAL PATTERNMAKER NOTE PATIENT DISCHARGE IN STABLE MEDICAL CONDITION, A/O X 3. V/S TAKEN STABLE. NO IV ACCESS, IV REMOVED. NAME ARM BAND REMOVED. EXTERNAL AVIATION ELECTRICIAN REMOVED AND RETURNED TO TELE DESK. PATIENT REFUSED SKIN ASSESSMENT AND PICTURES. ALL BELONGINGS CHECKED AND BELONGING LIST SIGNED. PATIENT LEFT WITH GEORGE CATHETER FACILITY AWARE. HEALTH TEACHING AND DISCHARGE INSTRUCTIONS GIVEN TO NURSE AT FACILITY, FAMILY AT BEDSIDE AND PATIENT, VERBALIZED UNDERSTANDING. REPORT GIVEN TO ARAM THOMAS AT [facility]. DISCUSSED PRESCRIPTION WITH PATIENT'S FAMILY, PATIENT AND NURSE AT FACILITY. INSTRUCTED PATIENT TO MAKE APPOINTMENT WITH DOCTORS. INSTRUCTED PATIENT IN CASE OF EMERGENCY TO CALL 911 OR GO TO NEAREST ER. PATIENT LEFT UNIT VIA GURNEY WITH NO SINGED OF DISTRESS NOTES. CHARGE NURSE AWARE OF DISCHARGED.
== END 2022-09-10 19:30 | DRG 853 ==
LOC: ER 18:57 → TELE 09-06 00:05
PROVIDERS: ADMIT Internal Medicine; ATTEND Nurse Practitioner Acute Care
PROC: 05HD33Z Insertion of Infusion Device into Right Cephalic Vein, Percutaneous Approach (ICD-10-PCS; 2022-09-07)
PROC: 0WQF0ZZ Repair Abdominal Wall, Open Approach (ICD-10-PCS; principal; 2022-09-09)
DX: A41.9 Sepsis, unspecified organism (principal); J15.9 Unspecified bacterial pneumonia; N18.6 End stage renal disease; I12.0 Hypertensive chronic kidney disease with stage 5 chronic kidney disease or end stage renal disease; N39.0 Urinary tract infection, site not specified; Z68.42 Body mass index [BMI] 45.0-49.9, adult; K31.6 Fistula of stomach and duodenum; N17.9 Acute kidney failure, unspecified; D69.6 Thrombocytopenia, unspecified; Z20.822 Contact with and (suspected) exposure to COVID-19; Z93.1 Gastrostomy status; Z88.1 Allergy status to other antibiotic agents; Z99.2 Dependence on renal dialysis; Z93.0 Tracheostomy status; Z87.09 Personal history of other diseases of the respiratory system; E66.01 Morbid (severe) obesity due to excess calories; M89.8X9 Other specified disorders of bone, unspecified site; Z86.16 Personal history of COVID-19; Z87.440 Personal history of urinary (tract) infections; Z79.01 Long term (current) use of anticoagulants; R13.10 Dysphagia, unspecified; E11.22 Type 2 diabetes mellitus with diabetic chronic kidney disease; L30.4 Erythema intertrigo; B36.9 Superficial mycosis, unspecified; E03.9 Hypothyroidism, unspecified; S30.811A Abrasion of abdominal wall, initial encounter; X58.XXXA Exposure to other specified factors, initial encounter; Y92.9 Unspecified place or not applicable
CPT/HCPCS: 31720; 36415; 71045-TC; 80048-TC; 80053-TC; 80076-TC; 81001; 82962-TC; 83605-TC; 83735-TC; 83880; 84100-TC; 84484-TC; 84703-TC; 85025-TC; 85730-TC; 87040-TC; 87081-TC; 87086-TC; 92526; 92611-TC; 94640-TC; 94664-TC; 94762-TC; 94799-TC; A4216; A4217; A4223; A6253; A6403; A6407; C9803; G0378; J0456; J0690; J0692; J1170; J1644; J2020; J2270; J2405; J2543; J2704; J2765; J3010; J3370; J3490; J7030; J7050; J7060; J7120